=== PATIENT | female | born 1980 | race Caucasian/White ===

== ENCOUNTER → 2017-05-02 | Outpatient (REF) | payer BC ==
[2017-05-02 13:31] LABS: THYROXINE (T4) 8.6 UG/DL (4.5-12.0)
== END ==
LOC: M SFHCCLAY 07:31
PROVIDERS: ATTEND Family Medicine
DX: Z13.29 Encounter for screening for other suspected endocrine disorder (principal)

== ENCOUNTER → 2017-05-05 | Outpatient (CLI) | payer BC ==
--- NOTE | 2017-05-10 09:23 | SLEEPHOME ---
DATE OF PROCEDURE: 05/05/2017 ORDERED BY: Julieth Valdez NP Diagnostic home sleep testing was performed due to concern for the obstructive sleep apnea syndrome in this patient with a history of excessive somnolence and nonrestorative sleep. For testing, a NOX-T3 respiratory monitoring device was used. Continuous record was made of pulse, oxygen saturation, airflow, chest and abdominal strain and body position. 9 hours and 59 minutes of data were reviewed. There were 8 hours marked as time in bed. During the interval marked time in bed, there were 72 respiratory events identified of 10 seconds in duration or greater for a respiratory event index of 9. The events were primarily obstructive. Baseline pulse rate 57 beats per minute. Pulse rate ranged 47-92. Baseline saturation 96%. Lowest oxygen saturation appreciated 88%. Testing was performed in both the supine and non-supine positions. IMPRESSION: Abnormal home sleep testing with repetitive respiratory events and oxygen desaturations to 88% with a respiratory event index of 9 is consistent with the obstructive sleep apnea syndrome. RECOMMENDATION: The patient should be referred for formal sleep evaluation and in-laboratory pressure titration.
== END ==
LOC: M SLEEP HO 11:00
PROVIDERS: ATTEND Nurse Practitioner Adult Health
DX: G47.30 Sleep apnea, unspecified (principal)

== ENCOUNTER → 2017-09-27 | Outpatient (CLI) | payer BC | LOC: M WUC 11:41 | DX: S80.01XA Contusion of right knee, initial encounter (principal); X58.XXXA Exposure to other specified factors, initial encounter; Y92.89 Other specified places as the place of occurrence of the external cause; Y99.9 Unspecified external cause status; Y93.9 Activity, unspecified | CPT/HCPCS: 73560 ==

== ENCOUNTER → 2019-07-18 | Outpatient (CLI) | payer BC, OTHER ==
--- NOTE | 2019-07-20 18:47 | SLEEPCENT ---
DATE OF PROCEDURE: 07/18/2019 ORDERED BY: NAGA Akhtar Nocturnal polysomnography was performed for evaluation of sleep physiology in this patient with symptoms suggesting obstructive sleep apnea syndrome and a prior diagnosis of same. 7 hours and 58 minutes of data were reviewed. There were 314 minutes of sleep identified. Sleep latency was prolonged at 106.5 minutes. Rapid eye movement (REM) latency was normal at 50 minutes. Sleep architecture was good. There were four REM cycles noted. A period of wake around 4:00 a.m. resulted in a reduced sleep efficiency of 66.6%. The patient's electrocardiogram showed a sinus rhythm with an average heart rate of 50 beats per minute. Rate ranged 44-88. EEG showed normal waveforms for awake and sleep stages. There were 37 respiratory events identified of 10 seconds in duration or greater for an apnea-hypopnea index of 7.1. The events were obstructive, primarily associated with stage REM but not exclusively so and seen in the supine posture. Events were associated with arousal 3.8 times per hour and oxygen desaturations were seen into the 80s. There was some activity in the limb leads but limb movement arousal index was only 1.7. IMPRESSION: Obstructive sleep apnea syndrome (G47.33). Apnea-hypopnea index 7.1. RECOMMENDATIONS: The patient should be encouraged to return to the sleep disorder center for pressure therapy. In the interim alcohol and sedative avoidance should be practiced and caution exercised during the operation of motor vehicles.
== END ==
LOC: M SLEEP 19:49
PROVIDERS: ATTEND Nurse Practitioner Adult Health
DX: G47.30 Sleep apnea, unspecified (principal)

== ENCOUNTER → 2019-10-10 | Outpatient (CLI) | payer BC, OTHER ==
--- NOTE | 2019-10-16 13:12 | SLEEPCENT ---
DATE OF STUDY: 10/10/2019 ORDERED BY: Carissa Mott Nocturnal polysomnography was performed for the titration of pressure therapy in this patient with obstructive sleep apnea syndrome and apnea-hypopnea index of 7.1. For testing, the patient was fit with a ResMed Mirage FX nasal mask of standard size, 4 cm of water pressure were applied to the circuit and the lights were extinguished. 7 hours and 51 minutes of data were reviewed. There were 381.5 minutes of sleep identified. Sleep latency was prolonged at 47.5 minutes. Rapid eye movement (REM) latency was short at 56 minutes. Sleep architecture was good with 5 REM cycles. Overall sleep efficiency was 81.8%. The patient's electrocardiogram showed a sinus rhythm with an average heart rate of 46 beats per minute. Rate ranged 40-82 beats per minute. Electroencephalogram (EEG) showed normal waveforms for awake and sleep. Respiratory events were best palliated with C-PAP at a pressure of +7. Some limb movement was noted early in the study, this improved on optimal pressure. IMPRESSION: Obstructive sleep apnea syndrome (G47.33). RECOMMENDATION: Nightly use of pressure therapy at 7 cm of water.
== END ==
LOC: M SLEEP 20:00
PROVIDERS: ATTEND Nurse Practitioner Adult Health
DX: G47.33 Obstructive sleep apnea (adult) (pediatric) (principal)

== ENCOUNTER → 2020-05-08 | Outpatient (CLI) | payer SELFPAY | LOC: M LABSMTC 10:19 | PROVIDERS: ATTEND Pediatrics | DX: Z20.828 Contact with and (suspected) exposure to other viral communicable diseases (principal) ==

== ENCOUNTER → 2022-05-04 | Outpatient (REF) | payer OTHER ==
[2022-05-04 12:20] LABS: ALBUMIN 3.6 G/DL (3.2-5.2); ALKALINE PHOSPHATASE 78 U/L (46-116); ALT/SGPT 25 U/L (7.0-40); AST/SGOT 19 U/L (<34); BILIRUBIN,TOTAL 0.5 MG/DL (0.3-1.2); BLOOD UREA NITROGEN 11 MG/DL (9-23); CALCIUM LEVEL 8.9 MG/DL (8.5-10.1); CARBON DIOXIDE LEVEL 28 MMOL/L (20-31); CHLORIDE LEVEL 102 MMOL/L (98-107); CHOLESTEROL LEVEL 174 MG/DL (<200); GLOMERULAR FILTRATION RATE > 60.0 (>58); GLUCOSE, FASTING 111 MG/DL (60-100); HDL CHOLESTEROL 62.1 MG/DL (>40); LDL CHOLESTEROL 93.5 MG/DL (<100); NON-HDL-C 112 MG/DL; POTASSIUM SERUM 4.3 MMOL/L (3.5-5.1); SODIUM LEVEL 138 MMOL/L (136-145); THYROID STIMULATING HORMONE 0.846 uIU/ML (0.55-4.78); THYROXINE (T4) 9.7 UG/DL (4.5-10.9); TOTAL PROTEIN 7.4 G/DL (5.7-8.2); TRIGLYCERIDES LEVEL 92 MG/DL (<150)
[2022-05-04 12:23] LABS: TOTAL T3 106.7 NG/DL (60.0-181.0)
== END ==
LOC: M SFHCCLAY 07:47
PROVIDERS: ATTEND Family Medicine
DX: Z13.220 Encounter for screening for lipoid disorders (principal); Z13.29 Encounter for screening for other suspected endocrine disorder

== ENCOUNTER → 2023-05-19 | Outpatient (CLI) | payer BC, OTHER | LOC: M SOG 07:50 | PROVIDERS: ATTEND Physician Assistant | DX: M25.531 Pain in right wrist (principal); M79.644 Pain in right finger(s) ==

== ENCOUNTER 2023-07-08 06:50 | Day surgery (SDC) | payer BC, OTHER ==
[~2023-07-08] VITALS: Ht 172.7 cm; Wt 112.5 kg
[~2023-07-08 06:50] MED LIST: NAPR-885 PO; TIRZ5PEN3
[2023-07-08] MEDS: LIDOCAINE W/EPINEPHRINE 1% 20ML VIAL XX ONE (07:50)
[2023-07-08] MEDS: SODIUM BICARBONATE 8.4% INJ 50MEQ 50ML VIAL XX ONE (07:50)
[2023-07-08] MEDS: BACITRACIN OINTMENT 30GM TUBE As Ordered ONE (09:09)
[2023-07-08 09:13] VITALS: BP 156/80; TEMP 97.8; O2SAT 100
== END 2023-07-08 09:45 | disposition home or self-care (01) ==
LOC: M SDC 06:50
PROVIDERS: ATTEND Orthopaedic Surgery Hand Surgery
DX: M65.4 Radial styloid tenosynovitis [de Quervain] (principal); G47.33 Obstructive sleep apnea (adult) (pediatric); Z79.899 Other long term (current) drug therapy

== ENCOUNTER → 2023-10-04 | Outpatient (REF) | payer BC ==
[2023-10-04 18:48] LABS: ALBUMIN 3.7 G/DL (3.2-5.2); ALKALINE PHOSPHATASE 89 U/L (46-116); ALT/SGPT 41 U/L (7.0-40); AST/SGOT 24 U/L (<34); BILIRUBIN,TOTAL 0.6 MG/DL (0.3-1.2); BLOOD UREA NITROGEN 11 MG/DL (9-23); CALCIUM LEVEL 9.5 MG/DL (8.5-10.1); CARBON DIOXIDE LEVEL 25 MMOL/L (20-31); CHLORIDE LEVEL 104 MMOL/L (98-107); CREATININE FOR GFR 0.77 MG/DL (0.55-1.30); GLOMERULAR FILTRATION RATE > 60.0 (>58); GLUCOSE, FASTING 96 MG/DL (60-100); POTASSIUM SERUM 4.3 MMOL/L (3.5-5.1); SODIUM LEVEL 136 MMOL/L (136-145); TOTAL PROTEIN 7.7 G/DL (5.7-8.2)
[2023-10-04 18:50] LABS: FREE T4 1.17 NG/DL (0.89-1.76); THYROID STIMULATING HORMONE 0.619 uIU/ML (0.55-4.78)
== END ==
LOC: M SFHCCLAY 13:55
PROVIDERS: ATTEND Family Medicine
DX: R53.83 Other fatigue (principal)